=== PATIENT | female | born 1940 | race Caucasian/White ===

== ENCOUNTER → 2017-02-23 | Outpatient (REF) | LOC: ZLAB.WCH 18:32 | DX: Z01.89 Encounter for other specified special examinations (principal) ==

== ENCOUNTER → 2017-03-07 | Outpatient (CLI) | payer BC | LOC: SUN.DIA 12:30 | DX: E11.65 Type 2 diabetes mellitus with hyperglycemia (principal); E66.9 Obesity, unspecified; Z68.31 Body mass index [BMI] 31.0-31.9, adult; Z71.3 Dietary counseling and surveillance; G47.30 Sleep apnea, unspecified; G40.909 Epilepsy, unspecified, not intractable, without status epilepticus; G47.419 Narcolepsy without cataplexy | CPT/HCPCS: G0108 ==

== ENCOUNTER → 2017-03-23 | Outpatient (CLI) | payer BC | LOC: SUN.DIA 12:02 | DX: E11.65 Type 2 diabetes mellitus with hyperglycemia (principal); E66.9 Obesity, unspecified; Z68.31 Body mass index [BMI] 31.0-31.9, adult; G47.30 Sleep apnea, unspecified; G40.909 Epilepsy, unspecified, not intractable, without status epilepticus; G47.419 Narcolepsy without cataplexy ==

== ENCOUNTER → 2017-05-04 | Outpatient (CLI) | payer BC | LOC: SUN.DIA 13:05 | DX: E11.9 Type 2 diabetes mellitus without complications (principal); Z79.4 Long term (current) use of insulin; E66.9 Obesity, unspecified; Z68.31 Body mass index [BMI] 31.0-31.9, adult; Z71.3 Dietary counseling and surveillance ==

== ENCOUNTER → 2017-07-29 | Outpatient (REF) | LOC: ZLAB.WCH 15:15 | DX: Z01.89 Encounter for other specified special examinations (principal) ==

== ENCOUNTER → 2017-08-02 | Outpatient (REF) | LOC: ZLAB.WCH 18:06 | DX: Z01.89 Encounter for other specified special examinations (principal) ==

== ENCOUNTER → 2018-02-09 | Outpatient (REF) | LOC: ZLAB.WCH 14:16 | DX: Z01.89 Encounter for other specified special examinations (principal) ==

== ENCOUNTER → 2019-02-14 | Outpatient (REF) ==
[2019-02-14 11:17] LABS: THYROID STIMULATING HORMONE 1.43 uIU/mL (0.465-4.680)
== END ==
LOC: ZLAB.WCH 10:31
PROVIDERS: Physician Assistant
DX: Z01.89 Encounter for other specified special examinations (principal)

== ENCOUNTER → 2021-04-28 | Outpatient (CLI) | payer BC | LOC: MHCPAIN 10:24 | DX: M47.817 Spondylosis without myelopathy or radiculopathy, lumbosacral region (principal); M53.3 Sacrococcygeal disorders, not elsewhere classified; M54.16 Radiculopathy, lumbar region | CPT/HCPCS: G0463 ==

== ENCOUNTER → 2021-04-30 | Outpatient (CLI) | payer BC | LOC: MHCPAIN 10:07 | DX: M47.816 Spondylosis without myelopathy or radiculopathy, lumbar region (principal); M96.1 Postlaminectomy syndrome, not elsewhere classified; M53.3 Sacrococcygeal disorders, not elsewhere classified; M54.16 Radiculopathy, lumbar region | CPT/HCPCS: J1100; Q9967 ==

== ENCOUNTER → 2021-05-19 | Outpatient (CLI) | payer BC | LOC: MHCPAIN 10:41 | DX: M47.816 Spondylosis without myelopathy or radiculopathy, lumbar region (principal); M96.1 Postlaminectomy syndrome, not elsewhere classified | CPT/HCPCS: G0463 ==

== ENCOUNTER → 2021-08-26 | Outpatient (CLI) | payer BC | LOC: MHCPAIN 07-15 11:25 | DX: M47.816 Spondylosis without myelopathy or radiculopathy, lumbar region (principal); M53.3 Sacrococcygeal disorders, not elsewhere classified; M96.1 Postlaminectomy syndrome, not elsewhere classified; M54.50 Low back pain, unspecified | CPT/HCPCS: G0463 ==

== ENCOUNTER → 2021-09-02 | Outpatient (CLI) | payer BC | LOC: MHCPAIN 11:06 | DX: M54.50 Low back pain, unspecified (principal); M53.3 Sacrococcygeal disorders, not elsewhere classified; M96.1 Postlaminectomy syndrome, not elsewhere classified | CPT/HCPCS: C1883; J0690; J2250; J3010 ==

== ENCOUNTER → 2021-09-09 | Outpatient (CLI) | payer BC | LOC: MHCPAIN 14:52 | DX: M54.16 Radiculopathy, lumbar region (principal); M53.3 Sacrococcygeal disorders, not elsewhere classified; G89.29 Other chronic pain; M96.1 Postlaminectomy syndrome, not elsewhere classified | CPT/HCPCS: G0463 ==